=== PATIENT | female | born 1990 | race Caucasian/White ===

== ENCOUNTER 2025-04-25 22:26 | Observation (INO) | payer MEDICAID, SELFPAY ==
[2025-04-25] VITALS (13 sets, daily range): BP systolic 100–112; BP diastolic 60–73; PULSE 94–118; RESP 18–20; TEMP 36.4–36.7; O2SAT 96–98; BMI 27.6
--- NOTE | 2025-04-25 17:06 | XR_ITS ---
Examination: PA chest single view TECHNIQUE: Upright PA chest single view Date and time: April 25, 2025 1723 hours INDICATIONS: Cough and congestion shortness of breath today. FINDINGS: Mild left base pneumonia Normal heart size Osseous structures intact IMPRESSION: Mild left base pneumonia
--- NOTE | 2025-04-25 17:07 | XR_ITS ---
Examination: Complete OB ultrasound greater than 14 weeks Date and time of exam: April 25, 2025 1742 hours INDICATIONS: Vaginal pain with vaginal discharge beginning 4 days ago Findings: Viable intrauterine single fetus with single amniotic sac presentation cephalic spine anterior Cardiac motion 155 BPM Placenta posterior grade 2. Umbilical cord insertion seen. Amniotic fluid index 15.3 cm. Cervix 2.3 cm. Ovaries obscured by bowel gas.. Composite estimated gestational age based on BPD, head circumference, abdominal circumference, femur length is 32 weeks 1 day Estimated weight 1846 g. Survey of intracranial anatomy, spinal anatomy, abdominal anatomy, four-chamber heart performed with no abnormalities identified. Impression: Viable intrauterine gestation cephalic presentation.
--- NOTE | 2025-04-25 17:08 | EDRME_ITS ---
Rapid Medical Screening Exam RME Arrival date/time: 04/25/25 16:51 34-year-old female currently presents emergency department today stating that she has cough ongoing x 1 month patient was sent here by MANAGER RESOURCE for further evaluation patient also reports nausea vomiting abdominal pain Chief Complaint: Flu Like Symptoms Vital signs: Vital Signs Temperature 98.0 F 04/25/25 16:59 Pulse Rate 118 H 04/25/25 16:59 Respiratory Rate 20 04/25/25 16:59 Blood Pressure 112/60 04/25/25 16:59 Pulse Oximetry (%) 97 04/25/25 16:59 Oxygen Delivery Method Room Air 04/25/25 16:59
[2025-04-25 17:53] LABS: Basophils % (Auto) 0 % (0-2.5); Eosinophils # (Auto) 0.1 Thou/mm3 (0.0-0.5); Eosinophils % (Auto) 1 % (0-10); Hematocrit 33.2 % (36.0-46.0); Hemoglobin 11.1 g/dL (12.0-16.0); Immature Granulocytes % (Auto) 0 % (0-0); Immature Granulocytes Auto 0.03 Thou/mm3 (0.00-0.00); Lymphocytes # (Auto) 2.3 Thou/mm3 (1.0-4.8); Lymphocytes % (Auto) 30 % (10-50); Mean Corpuscular HGB Conc 33.4 g/dl (31.0-37.0); Mean Corpuscular Hemoglobin 28.6 pg (25.0-35.0); Mean Corpuscular Volume 86 fL (80-100); Monocytes # (Auto) 0.8 Thou/mm3 (0.0-0.8); Monocytes % (Auto) 10 % (0-12); Neutrophils # (Auto) 4.4 Thou/mm3 (1.8-7.7); Neutrophils % (Auto) 57 % (37-80); Nucleated Red Blood Cell % 0 /100 WBC (0); Platelet Count 293 Thou/mm3 (140-440); RDW Standard Deviation 39.8 fL (36.4-46.3); Red Blood Count 3.88 Miln/mm3 (4.00-5.20); White Blood Count 7.6 Thou/mm3 (3.6-11.0)
[2025-04-25 18:44] LABS: Alanine Aminotransferase < 7 U/L (10-49); Albumin, Serum 3.8 gm/dL (3.5-5.0); Albumin/Globulin Ratio 1.4 (1.2-2.2); Alkaline Phosphatase 89 U/L (46-116); Anion Gap 12 (7-16); Aspartate Amino Transferase 16 U/L (0-34); BUN/Creatinine Ratio 8 Ratio (12-20); Bilirubin,Total 0.3 mg/dL (0.3-1.2); Blood Urea Nitrogen < 5 mg/dL (9-23); Calcium 9.3 mg/dL (8.3-10.6); Calcium (Corrected) 9.5 mg/dL (8.5-10.1); Carbon Dioxide 24.1 mMol/L (20.0-31.0); Chloride 105 mMol/L (98-107); Creatinine (Component) 0.6 mg/dL (0.6-1.3); Globulin 2.7 gm/dL (2.3-3.5); Glucose 100 mg/dL (74-106); Lipase 90 U/L (12-53); Osmolality,Calculated 278 (275-295); Potassium 3.1 mMol/L (3.4-5.1); Sodium 141 mMol/L (136-145); Total Protein 6.5 gm/dL (5.7-8.2); eGFR > 60 See Note
[2025-04-25 18:47] LABS: Collection Type, Urine Clean Catch
[2025-04-25 18:59] LABS: Beta HCG,Quantitative 26318 mIU/mL (<5.0)
[2025-04-25] MEDS: POTASSIUM CHLORIDE 20 mEq TABCR 40 MEQ PO (19:17)
[2025-04-25] MEDS: OSELTAMIVIR 75 MG CAPSULE PO (19:17)
[2025-04-25 19:32] LABS: Bilirubin,Urine 1+ (Negative); Blood,Urine Trace (Negative); Calcium Oxalate Crystals,Urine 1+; Color,Urine Yellow (Lt Yel-Yel); Glucose, Urine Trace (Negative); Ketones,Urine 1+ (Negative); Leukocyte Esterase,Urine Positive (Negative); Nitrite,Urine Negative (Negative); Protein,Urine 2+ (Neg - Trace); RBC,Urine 140 /hpf (0-3); Specific Gravity,Urine 1.037 (1.001-1.035); Squamous Epithelial Cell,Urine 254 /hpf (0-5); WBC,Urine 456 /hpf (0-5)
[2025-04-25 20:20] LABS: Clarity,Urine Turbid (Clear/Hazy)
[2025-04-25 20:26] LABS: Amphetamine/Methamp Scrn,U Negative (Negative); Barbiturate Screen,Urine Negative (Negative); Benzodiazepines Screen,Urine Negative (Negative); Benzoylecgonine Screen, Ur Negative (Negative); Fentanyl Screen,Urine Negative (Negative); Opiate Screen,Urine Negative (Negative); THC Screen,Urine Negative (Negative)
--- NOTE | 2025-04-25 21:31 | EDNOTE_ITS ---
Upper Respiratory Inf. RME/HPI General Chief Complaint: Flu Like Symptoms Stated Complaint: NEEDS CHEST XRAY SENT BY OB, 32WKS PREG Time Seen by Provider: 04/25/25 18:14 Arrival date/time: 04/25/25 16:51 RME / HPI RME / HPI Narrative: 34-year-old female patient 2 para 1, about 32 weeks , was sent to us by GLOBAL HUMAN RESOURCES DIRECTOR for evaluation regarding cough. Patient been having cough for 2 weeks, associated with headaches, nausea, vomiting and clear vaginal discharge. Patient denies any abdominal pain or cramping. Denies any vaginal bleeding or spotting. Denies any fever. Denies any other complaints no medication was taken prior to arrival. Related Data Previous Rx's ?Medication ?Instructions ?Recorded HYDROCODONE BIT/ACETAMINOPHEN 1 tab PO Q4-6HRPRN PRN A BDOMINAL 10/05/13 (Vicodin 5/300) PAIN ##10 Motrin 600 MG 1 tab PO qidprn pain #1 tab 09/03/16 vicodin 5/300 1 tab PO q4hprn pain #10 tab s 09/03/16 ibuprofen 600 mg tablet 600 mg PO Q8H PRN fever or p ain 09/17/24 #30 tabs cefuroxime axetil 500 mg tablet 500 mg PO BID #14 tabs 04/25/25 oseltamivir 75 mg capsule (Tamiflu) 75 mg PO BID 5 day s #10 caps 04/25/25 Allergies Allergy/AdvReac Type Severity Reaction Status Date / Time NKA* Allergy Uncoded 04/25/25 16:55 Review of Systems Review of Systems Narrative Review of Systems: Review of system reviewed and within normal limits except mentioned in HPI ED Exam Narrative Physical exam: VITAL SIGNS: Reviewed. GENERAL APPEARANCE: Alert and interactive, follows commands, no acute distress, HEAD AND FACE: Non-traumatic. ENT: PERRL, pink conjunctivitis, eyelid no trauma, Mucous membrane moist. NECK: Supple, nontender, no nuchal rigidity. CHEST: No tenderness, no crepitus, no paradoxical movement, no retractions. LUNGS: Clear, well ventilated, symmetric, no rales, no wheezing, no ronchi, no stridor, good breath sounds bilaterally. HEART: Regular rate, regular rhythm, no murmur, no gallops. ABDOMEN: Soft, positive bowel sounds, nondistended, no guarding, nontender, no rebound, no masses, RECTAL: Deferred. GENITAL: Deferred. NEUROLOGICAL: Gross motor function intact sensory function intact, Appropriate for age. MUSCULOSKELETAL: low back nontender, full range of motion. EXTREMITIES: Nontender, full range of motion. SKIN: Color pink, dry, no rash, no lacerations, no abrasions, no contusions. LYMPHATICS: Deferred. Course Quality Measures none Orders Category Date Time Status Bedside Influenza A&B Antigen Test NOW Care 04/25/25 17:06 Completed US OB >= 14 weeks Fetus Stat Exams 04/25/25 17:07 Completed XR chest 1V portable Stat Exams 04/25/25 17:06 Completed ABO/RH Type Stat Lab 04/25/25 17:16 Completed Beta HCG,Quantitative Stat Lab 04/25/25 17:16 Completed CBC Stat Lab 04/25/25 17:16 Completed Cocci Serology IgM with reflex to IgG [Cocci Serology, Lab 04/25/25 17:16 Received Unk History] Stat Comprehensive Metabolic Panel Stat Lab 04/25/25 17:16 Completed Drug Screen,Urine Stat Lab 04/25/25 18:39 Completed Lipase Stat Lab 04/25/25 17:16 Completed UA [Urinalysis] Stat Lab 04/25/25 18:39 Completed Urine Culture Stat Lab 04/25/25 18:39 Received 1,000 mg IM w/Lido* 1% Med 04/25/25 21:30 Ordered cefTRIAXone [Rocephin] 1,000 mg Lidocaine 1% 20 ml [Xylocaine 1% 20 ML] 2.1 ml IM X1 Oseltamivir [Tamiflu] Med 04/25/25 18:56 Discontinued 75 mg PO X1 ONE Potassium Chloride [K-Dur] Med 04/25/25 18:56 Discontinued 40 meq PO X1 ONE Vital Signs Vital signs: Vital Signs Temperature 98.0 F 04/25/25 16:59 Pulse Rate 118 H 04/25/25 16:59 Respiratory Rate 20 04/25/25 16:59 Blood Pressure 112/60 04/25/25 16:59 Pulse Oximetry (%) 97 04/25/25 16:59 Oxygen Delivery Method Room Air 04/25/25 16:59 Upper Respiratory Infection MDM Narrative MDM Narrative:: 52-year-old male patient with significant history of hypertension diabetes mellitus, came in for evaluation regarding left ring finger wound check. Apparently patient sustained a laceration to the left ring finger, 19 days ago, seen in different emergency room, and currently followed by hand specialist. Patient supposed to have surgery 3 days ago however it was canceled due to card iac clearance problem. For the last several days patient has been noticing foul-smelling discharge. Denies any fever. Denies any other plane patient is not currently taking any antibiotic. Patient tested positive for influenza A and B, urinalysis positive for UTI, chest x-ray showed mild pneumonia. Results discussed with the patient. Patient was given potassium replacement, Tamiflu, and SCeftriaxone IM Was sent to labor and delivery for monitoring also. Patient data External records reviewed:: None Clinical information provided by:: patient Social determinants that could affect healthcare access:: none Patient has the following chronic illnesses:: None How is presenting disease/condition affected by chronic disease/condition?: no chronic disease Evaluation data The following diagnostics were reviewed and interpreted by me:: lab results and radiology exam(s) Lab and/or radiology exams considered but not ordered:: None Interpretation Summary: None Medications / Prescriptions Medications or Prescriptions considered but not ordered:: None Medication administrations:: Medication Administration History Ceftriaxone Sodium 1,000 mg/ (Lidocaine HCl 2.1 ml) 0 mg IM X1 ONE Stop: 04/25/25 21:31 Discontinued Medications Oseltamivir Phosphate (Oseltamivir 75 Mg Capsule) 75 mg PO X1 ONE Stop: 04/25/25 18:57 Last Admin: 04/25/25 19:17 Dose: 75 mg Documented By: BD Potassium Chloride (Potassium Chloride 20 Meq Tabcr) 40 meq PO X1 ONE Stop: 04/25/25 18:57 Last Admin: 04/25/25 19:17 Dose: 40 meq Documented By: BD Potassium replacement Tamiflu, ceftriaxone IM Consultations Consultation(s) initiated? (list below): No Diagnosis Upper Respiratory Differential Diagnosis: upper respiratory infection, viral infection and influenza Most likely diagnosis given after review of the tests above:: Influenza, pneumonia, UTI, third trimester Admission Indicated Admission indicated?: not indicated Admission Request Was there a request for admission?: No Disposition Plan Disposition Plan: Discharge Discharge Attestation Discharge Attestation: The patient was given an opportunity to ask questions and understood the discharge instructions. Discharge instructions specifically effects, indications for sooner follow up or return to the emergency department, and the expected course of current diagnosis. Patient condition: Stable Discharge Plan Plan Patient Disposition: HOME (Self Care) Discharge Disposition comment: Stable Prescriptions/Referrals Prescriptions/Med Rec: New oseltamivir [Tamiflu] 75 mg capsule 75 mg PO BID 5 Days Qty: 10 0RF cefuroxime axetil 500 mg tablet 500 mg PO BID Qty: 14 0RF No Action HYDROCODONE BIT/ACETAMINOPHEN (Vicodin 5/300) 1 TAB tablet 1 tab PO Q4-6HRPRN PRN (Reason: ABDOMINAL PAIN) Qty: 10 0RF Motrin 600 MG 1 tab PO qidprn pain Qty: 1 0RF vicodin 5/300 1 tab PO q4hprn pain Qty: 10 0RF ibuprofen 600 mg tablet 600 mg PO Q8H PRN (Reason: fever or pain) Qty: 30 0RF Referrals: No Primary/Family,Physician [Primary Care Provider] - In 1 week Problem List Clinical Impression: Influenza, UTI (urinary tract infection), Pneumonia affecting in third trimester Patient/Caregiver Discharge Instructions Discharge Activity: activity as tolerated Education Materials: ED Influenza (Adult) Additional Instructions: Thank you for the opportunity for serving you today. You are stable for discharged . You are advised to: Follow-up with your GLOBAL HUMAN RESOURCES DIRECTOR in 1 to 2 days Return to ED for worsening of symptoms Increase oral fluids Take medication as prescribed Print Language: Chinese Stand Alone Forms: Rae Award Info., Patient Portal Info Letter MICHELLE/JERAMY Supervising Physician MICHELLE/JREAMY Supervising Physician: MD Tami
[2025-04-25] MEDS: cefTRIAXone 1,000 MG, LIDOCAINE 1% 20 ML 2.1 ML IM (22:06)
--- NOTE | 2025-04-25 22:19 | PC.NURSE ---
PT TO OB.
[2025-04-26 14:39] LABS: Cocci Serology, IgM Negative (Negative)
[2025-04-28 14:12] LABS: Cocci Serology, IgG Negative (Negative)
== END 2025-04-25 23:30 | disposition home or self-care (01) ==
LOC: S4SX 22:27
PROVIDERS: Nurse Practitioner Primary Care; Admitting Provider Specialist; PCP Family Medicine; Visit Provider Specialist
DX: O23.43 Unspecified infection of urinary tract in pregnancy, third trimester (principal); N39.0 Urinary tract infection, site not specified; O99.513 Diseases of the respiratory system complicating pregnancy, third trimester; J11.00 Influenza due to unidentified influenza virus with unspecified type of pneumonia; Z3A.32 32 weeks gestation of pregnancy
CPT/HCPCS: 36415; 59025; 59899; 71045; 76805; 80053; 80307; 81001; 83690; 84702; 85025; 86331; 86635; 86900; 86901; 87086; 87400; 96372; 99283; J0696; J3490; A9270

== ENCOUNTER 2025-06-09 17:10 | Observation (INO) | payer MEDICAID, SELFPAY ==
[2025-06-09] VITALS (20 sets, daily range): BP systolic 96–109; BP diastolic 64–71; PULSE 71–90; RESP 18–98; TEMP 36.7; O2SAT 98–100; BMI 27.6
[2025-06-09 18:30] LABS: ROM Kit Exp Date# 11-15-27; ROM Kit Lot # 58102387; Swb Mxed in Solvent 1 min? Yes
[2025-06-09 18:31] LABS: ROM Swab Mixed By: ASTOA1; Rupture of Fetal Membranes Negative (Negative)
== END 2025-06-09 19:00 | disposition home or self-care (01) ==
PROVIDERS: Admitting Provider Obstetrics & Gynecology; Visit Provider Obstetrics & Gynecology
DX: O47.1 False labor at or after 37 completed weeks of gestation (principal); Z3A.39 39 weeks gestation of pregnancy
CPT/HCPCS: 59025; 59899; 84112

== ENCOUNTER 2025-06-17 17:26 | Inpatient (IN) | payer MEDICAID, SELFPAY ==
[2025-06-17 17:35] VITALS: BP 99/63; PULSE 91; BMI 27.4
[2025-06-17] MEDS: RINGERS LACTATED 1000 ML 1,000 ML 100 ML IV (18:03)
[2025-06-17 18:30] LABS: Basophils # (Auto) 0.0 Thou/mm3 (0.0-0.2); Basophils % (Auto) 0 % (0-2.5); Eosinophils # (Auto) 0.0 Thou/mm3 (0.0-0.5); Eosinophils % (Auto) 1 % (0-10); Hematocrit 31.2 % (36.0-46.0); Hemoglobin 10.2 g/dL (12.0-16.0); Immature Granulocytes Auto 0.03 Thou/mm3 (0.00-0.00); Lymphocytes # (Auto) 1.7 Thou/mm3 (1.0-4.8); Lymphocytes % (Auto) 27 % (10-50); Mean Corpuscular HGB Conc 32.7 g/dl (31.0-37.0); Mean Corpuscular Hemoglobin 25.6 pg (25.0-35.0); Mean Corpuscular Volume 78 fL (80-100); Monocytes # (Auto) 0.4 Thou/mm3 (0.0-0.8); Monocytes % (Auto) 7 % (0-12); Neutrophils # (Auto) 4.0 Thou/mm3 (1.8-7.7); Neutrophils % (Auto) 65 % (37-80); Nucleated Red Blood Cell # 0.00 Thou/mm3 (0.00-0.00); Nucleated Red Blood Cell % 0 /100 WBC (0); Platelet Count 314 Thou/mm3 (140-440); RDW Standard Deviation 40.5 fL (36.4-46.3); Red Blood Count 3.98 Miln/mm3 (4.00-5.20); White Blood Count 6.2 Thou/mm3 (3.6-11.0)
--- NOTE | 2025-06-17 18:49 | XR_ITS ---
Examination: Complete OB ultrasound greater than 14 weeks Date and time of exam: June 17, 2025, 1911 hours INDICATIONS: Prelabor induction, unknown presentation, unknown dates, clinical diagnosis postdates Findings: Viable intrauterine single fetus with single amniotic sac presentation cephalic Cardiac motion 153 BPM Placenta posterior grade 3 Umbilical cord insertion 3 vessel seen Amniotic fluid index 1.1 cm spine maternal right Cervix 3.6 cm Ovaries obscured by bowel gas. Composite estimated gestational age based on BPD, head circumference, abdominal circumference, femur length is 30 weeks 4 days Estimated weight 3484 g. Survey of intracranial anatomy, spinal anatomy, abdominal anatomy, four-chamber heart performed with no abnormalities identified. Impression: Viable intrauterine gestation cephalic presentation Estimated gestational age 38 weeks 4 days Estimated weight 3484 g.
[2025-06-17 18:55] VITALS: BP 122/81; PULSE 108
[2025-06-17 19:19] VITALS: TEMP 36.6
[2025-06-17 20:09] LABS: Syphilis Nonreactive (Nonreactive)
[2025-06-17 20:25] LABS: Amphetamine/Metham Scrn,Ur OB Negative (Negative); Benzoylecgonine Screen, Ur OB Negative (Negative); Opiate Screen,Urine OB Negative (Negative); THC Screen,Urine OB Negative (Negative)
--- NOTE | 2025-06-17 20:43 | PD.LDHP ---
Documentation for date of: 06/17/25 OB Labor/Induct. HPI History of Present Illness Chief complaint: scheduled IOL : 2 Para: 1 Term pregnancies: 1 pregnancies: 0 Living children: 1 History of Abortions: Spontaneous and Elective: 1 History of Vaginal deliveries: 1 History of sections: No History of : No Date of last menstrual period: 09/06/24 MIR: 06/13/25 Gestational Age (weeks): 40 Gestational Age (days): 4 Gestational age based on last menstrual period: 40 Indication for induction: post dates History of present illness: Patient presents for scheduled induction of labor. Indication: late-term gestation. No regular/painful ctx. No LOF. No vaginal bleeding. Normal movement. History of Present Dating criteria: LMP confirmed by 2nd trimester US Adequate Care: Yes Abnormal ultrasound findings: 30 week growth: 22%ile 36 week growth: 47%ile Narrative: : FAVD with laceration of vaginal artery and subsequent surgery - patient unsure of details beyond that. [id number]. G2: current FOB is 69yo w/hx of hydrocephalus NIPT negative, XX Patient vapes nicotine ( few puffs every couple hours ) Hx of macrosomia, 1hr glucola 81 Anemia Rubella non-immune Labs Maternal Blood Type: O Pos Labs: Negative: RPR, Hepatitis B, Rubella Titre, HIV, Chlamydia, Gonorrhea and Group Beta Strep and Unknown: Herpes Type 1, Herpes Type 2 and Covid-19 Narrative: NIPT negative, XX MSAFP negative 1hr glucola 81 Review of Systems Review of Systems Narrative Review of Systems: Review of Systems Systems Reviewed: All systems reviewed, normal except as documented Constitutional Constitutional: Denies body ache(s), Denies chills, Denies fever(s) and Denies headache(s) ENT Ears, Nose, Mouth, and Throat: Denies headache(s) and Denies vertigo Cardiovascular Cardiovascular: Denies chest pain, Denies palpitations, Denies dyspnea and Denies syncope Respiratory Respiratory: Denies cough, Denies dyspnea Gastrointestinal Gastrointestinal: Denies nausea and Denies vomiting Neurologic Neurologic: Denies convulsions, Denies headache(s), Denies other visual disturbances, Denies syncope and Denies vertigo Past Medical History Family History OTHER FAMILY HX: Many types of cancers in various relatives (see office records) Surgical History SURGICAL: Negative Section Social History SOCIAL: Vapes nicotine daily x many years. No ETOH or illicit drug use. Past Medical History Comments PMH COMMENT: Hx of nicotine use Hx of manic depression Meds Home Medications and Allergies Home Medications ?Medication ?Instructions ?Recorded ?Confirmed ?Type vitamins-iron fumarate 65 1 tab PO QDAY 06/09/25 06/09/25 History mg iron-folic acid 1 mg tablet (Mynatal Plus) Allergies Allergy/AdvReac Type Severity Reaction Status Date / Time NKA* Allergy Uncoded 04/25/25 16:55 OB Exam Physical Exam Vital signs: Temp Pulse BP 97.8 F 108 H 122/81 06/17/25 19:19 06/17/25 18:55 06/17/25 18:55 General: well developed, well nourished, no acute distress, conversant Cardiac: normal heart rate Lungs: breathing without distress Abdomen: soft, gravid, non-tender, no rebound or guarding Extremities: tracce edema BLE Detailed Labor and Delivery Exam Dilation (cm): 1 Effacement (%): 50 Cervix position: mid station: -2 Consistency: medium Presentation: Vertex Membranes: intact monitor accelerations: 15x15 monitor decelerations: None penitentiary variability: Moderate (11-25) Contraction frequency (min): no ctx pattern OB Results Labs 06/17/25 17:58 Labs: Short CBC 06/17/25 Range/Units 17:58 WBC 6.2 (3.6-11.0) Thou/mm3 Hgb 10.2 L (12.0-16.0) g/dL Hct 31.2 L (36.0-46.0) % Plt Count 314 (140-440) Thou/mm3 OB Assessment & Plan Assessment and Plan (1) Encounter for induction of labor: Status: Acute Assessment and plan: Telma is a 35yo with SIUP at 40&4wk presenting for scheduled IOL for late-term gestation with new finding of oligohydramnios, RANDY 1.1cm. EFW 3484g. SCE: /-2. Vitals wnl, benign exam. Cat I FHRT. care with Dr. Beavers's office PMhx/PNC significant for: G1: FAVD 13 years ago with laceration of vaginal artery and subsequent surgery , [id number]. Normal 1hr glucola. FOB is 69yo w/hx of hydrocephalus. NIPT negative, XX Patient vapes nicotine ( few puffs every couple hours ) Anemia Rubella non-immune Plan: -Admit to L&D -Establish IV, IVF bolus 1L LR now, routine labs -CEFM -Regular diet [id number], then clear liquid diet in labor -Senior Corporate [employer]ant/consent re: iol and -GBS status: negative -Will initiate IOL with: cytotec 25mcg PV Q4hr -Anticipate -Safe to proceed Kari Chaves MD (2) Oligohydramnios in third trimester: Status: Acute (3) 40 weeks gestation of : Status: Acute (4) History of macrosomia in in prior , currently in third trimester: Status: Acute (5) History of forceps delivery in prior , currently : Status: Acute (6) Tobacco use affecting , antepartum: Status: Acute (2) Oligohydramnios in third trimester Qualifiers: Fetus number: single or unspecified fetus Qualified Code(s): O41.03X0 - Oligohydramnios, third trimester, not applicable or unspecified
[2025-06-17 22:24] VITALS: BP 107/70; PULSE 68
[2025-06-18] VITALS (120 sets, daily range): BP systolic 93–137; BP diastolic 50–94; PULSE 50–101; RESP 15–19; TEMP 36.1–37; O2SAT 80–100
[2025-06-18] MEDS: fentaNYL CIT INJ 50 mCg/ML AMP 2ML 100 MCG IVP ×2 (05:20→06:20)
[2025-06-18] MEDS: RINGERS LACTATED 1000 ML 1,000 ML 100 ML IV ×2 (05:21→06:14)
[2025-06-18] MEDS: OXYTOCIN in NS 20 units 20 UNIT/1,000 ML BAG 125 UNIT IV ×2 (08:47→10:13)
[2025-06-18] MEDS: LIDOCAINE HCL 1% 20 ML VIAL INFL (08:50)
[2025-06-18] MEDS: BENZO/LANO/ALOE (Dermoplast) 60 GM CAN 1 SPRAY TOP (08:55)
[2025-06-18] MEDS: IBUPROFEN TAB 400 MG TABLET 800 MG PO ×2 (08:56→20:48)
[2025-06-18] MEDS: METHYLERGONOVINE INJ 0.2 MG/ML VIAL IM (09:15)
[2025-06-18] MEDS: CARBOPROST TROMETH INJ 250 MCG/ML VIAL IM (09:20)
[2025-06-18] MEDS: TRANEXAMIC ACID 1,000 MG IVPB 1,000 MG/100 ML BAG 200 MG IV (09:30)
[2025-06-18] MEDS: DIPHENOXYLATE/ATROP SULF 1 TAB PO (09:35)
[2025-06-18] MEDS: ACETAMINOPHEN 325 MG TABLET 650 MG PO (15:48)
[2025-06-18] MEDS: AMPICILLIN/SULBAC INJ 3 GM in SODIUM CHLORIDE 0.9% (POP) 100 ML IV (15:49)
[2025-06-18 15:57] LABS: Basophils # (Auto) 0.0 Thou/mm3 (0.0-0.2); Basophils % (Auto) 0 % (0-2.5); Eosinophils # (Auto) 0.0 Thou/mm3 (0.0-0.5); Eosinophils % (Auto) 0 % (0-10); Hematocrit 27.7 % (36.0-46.0); Hemoglobin 8.9 g/dL (12.0-16.0); Immature Granulocytes Auto 0.05 Thou/mm3 (0.00-0.00); Lymphocytes # (Auto) 1.2 Thou/mm3 (1.0-4.8); Lymphocytes % (Auto) 10 % (10-50); Mean Corpuscular HGB Conc 32.1 g/dl (31.0-37.0); Mean Corpuscular Hemoglobin 26.3 pg (25.0-35.0); Mean Corpuscular Volume 82 fL (80-100); Monocytes # (Auto) 0.9 Thou/mm3 (0.0-0.8); Monocytes % (Auto) 7 % (0-12); Neutrophils # (Auto) 9.4 Thou/mm3 (1.8-7.7); Neutrophils % (Auto) 82 % (37-80); Nucleated Red Blood Cell # 0.00 Thou/mm3 (0.00-0.00); Nucleated Red Blood Cell % 0 /100 WBC (0); Platelet Count 244 Thou/mm3 (140-440); RDW Standard Deviation 42.1 fL (36.4-46.3); Red Blood Count 3.39 Miln/mm3 (4.00-5.20); White Blood Count 11.6 Thou/mm3 (3.6-11.0)
--- NOTE | 2025-06-18 16:02 | OBDSUM_ITS ---
Data ([facility]) Data Hx Section: No : 2 Term: 1 : 0 Livin Abortions: Spontaneous & Theraputic: 1 Delivery Data ([facility]) Labor Data Initiation of labor: Spontaneous Induction/Augmentation Agent: Cytotec-Vaginal ROM date: 06/18/25 ROM time: 08:36 Amniotic membrane rupture type: Artificial Delivery Data Onset of labor date: 06/18/25 Onset of labor time: 07:42 Complete dilation date: 06/18/25 Complete dilation time: 08:40 [place] delivery date: 06/18/25 delivery time: 08:44 Placenta delivery date: 06/18/25 Placenta delivery time: 08:51 Stage 1 total time: Labor - Stage 1 Duration 58 minutes Delivered by: Anastacio Delivery nurse: Shelby Neworn nurse: Brittany Site Manager at delivery: No Support person(s) at delivery: FOB Other staff at delivery: DANIELA Denton Delivery Method Delivery method: Normal Vaginal Delivery Presentation: Vertex Anesthesia Type Anesthesia Type: Local and Epidural Placenta Placenta delivery description: Spontaneous Cord blood sent to lab: Yes cord blood collection: Cord Blood Type EBL Estimated blood loss (ml): 500 Umbilical Cord cord description: 3 Vessels Additional Procedures Telma is a 35yo [id number] with s/p uncomplicated at 40&5wk after undergoing IOL for late-term gestation with new finding of oligohydramnios, RANDY 1.1cm, on a dmission- she delivered at 0844 on 06/18/25. On presentation, SCE was 1/50/-2. She progressed to delivery with PV cytotec alone. She had rapid cervical change from 5 to 10cm, and received an epidural just prior to 10cm. At C/C/0 she began pushing. With just a couple sets of contractions, infant's head delivered OA and restituted CHERYL. Left anterior shoulder delivered easily followed by posterior s houlder and corpus. Meconium fluid noted at that point. Infant had spontaneous cry and was vigorous. Apgars 8/9. placed on maternal abdomen where nose/mouth were suctioned and dried/stimulated. After approximately 1 minute, cord was clamped x2 and cut by FOB. Cord blood collected for typing. With fundal massage and cord traction, placenta delivered spontaneously and intact with 3 vessel centrally inserted cord. Bimanual massage performed and IV pitocin given per protocol with fundus then firm at u-2cm and hemostasis noted. Inspection of perineum and vagina revealed right labial laceration which was repaired in routine fashion with 4-0 vicryl after anesthetizing with 1% lidocaine- total reapproximation and hemostasis achieved. Trickle of blood noted on fundal massage, so sweep just within cervix/RICHARD performed which revealed a large collection of clot within the uterus. Manual sweep was performed to remove the clot, there was no retained POCs. The lower uterine segment was noted to be very boggy, so vigorous bimanual massage was performed. During massage, 0.2mg IM methergine was given. Upon re-check a few minutes later, there was a substantial amount of re-collection of clot within the uterus and lower uterine segment was boggy again. At that time the clot was removed, vigorous bimanual massage again performed with resultant firming of lower uterine segment. She was given 0.25mg hemabate IM and another IV was placed to begin infusion of TXA 1g IV. After all of these measures, the uterine fundus and lower uterine segment remained firm with only very small amount of clot collected on final sweep. Cytotec 800mcg CT placed for continued prophylaxis against atony. Unasyn 3g IV x1 ordered for prophylaxis given extensive uterine sweeping of clot. All counts correct x2. Mom and infant were doing well when I left the room. Kari Chaves MD Complications Complications: PPH [place] Data ([facility]) [place] Data order: 1 [place]'s gender: Female Identification band number: [id number] weight (gms): 3430 g Weight (pounds): 7 lbs and 9.0 ozs 1 minute: 8 5 minutes: 9
[2025-06-18] MEDS: DOCUSATE SOD 100 MG CAPSULE PO (20:48)
[2025-06-19 00:15] VITALS: BP 115/76; PULSE 70; RESP 18; TEMP 36.6; O2SAT 99
[2025-06-19 04:18] VITALS: BP 100/63; PULSE 65; RESP 16; TEMP 36.4; O2SAT 100
[2025-06-19 08:05] VITALS: BP 110/70; PULSE 68; RESP 16; TEMP 36.6; O2SAT 100
--- NOTE | 2025-06-19 09:00 | PC.NURSE ---
Lab came to draw CBC, pt refused stating her doctor said she was fine and will be going home today. I explained that her Hgb had dropped yesterday and asked if she was having any symptoms (lightheaded, fatigued) pt denied all. Vitals are WNL, will speak to doctor when she comes in, as pt is in fact expected to go home today.
--- NOTE | 2025-06-19 09:47 | PC.LAC ---
Mom states she is doing well with , does not have any questions at this time. States she will be following up with [facility].
[2025-06-19 11:35] VITALS: BP 114/72; PULSE 72; RESP 16; TEMP 36.7; O2SAT 100
--- NOTE | 2025-06-19 13:02 | PD.LDDS ---
DS: Providers Provider Date of admission: 06/17/25 17:26 Primary care physician: Kasey Paulino PA-C Admitting Provider: Kari Chaves MD Attending Provider on Admission: Kari Chaves MD Consults: 06/18/25 09:40 Referral Routine Comment: Attending Provider on DC: Ana Rae MD ([facility]) Discharging Provider: Ana Rae MD ([facility]) Anticipated date of discharge: 06/19/25 DS: Diagnosis Discharge Diagnosis (1) Term delivered: Status: Acute Assessment & Plan: Discharge home day #1 in stable condition Problem List Completed Was Problem List Reviewed/Reconciled?: Yes Summary/Hosp Course Brief History: The patient is a 35-year-old -0-0-1 at term with all care uncomplicated with Dr Beavers presented for scheduled induction of labor. Indication: late-term gestation. Dr. Chaves admitted the patient 06/17/2025. See history and physical for further details. No regular/painful ctx. No LOF. No vaginal bleeding. Normal movement. The patient underwent an uncomplicated vaginal delivery by Dr. Chaves 06/18/2025. Please see delivery notes for further details. On day #1 patient was dressed in her own clothes and ambulating around the room. Her baby was present as is the father of the baby. Patient denied heavy bleeding or cramping. She denies nausea or vomiting. Her predelivery hemoglobin was 10.2. Her post delivery at [address] Chaves had ordered a CBC for this morning but patient declined. She states she will follow-up with Dr Beavers. She specifically reports no dizziness no shortness of breath. Her vital signs are stable. Patient would like to be discharged. At delivery she was given TXA and Cytotec. She was given 1 dose of antibiotics secondary to manual removal of clots at delivery. She will be discharged home day #1. Peripartum Data Delivery Method: Normal Vaginal Delivery complications: none Status at Discharge Cognitive/behavioral status at discharge: Patient is alert and oriented x 3 in no apparent distress Functional status at discharge: independent ambulation Overall status at discharge: patient is progressing back to baseline Time Spent with Patient Time attestation: Total time spent providing and/or coordinating discharge services: Time spent: Less than 30 minutes Specific discharge activities: Pelvic rest x 6 weeks Exam Vital Signs Temp Pulse Resp BP Pulse Ox O2 Del Method 97.8 F 68 16 110/70 100 Room Air 06/19/25 08:05 06/19/25 08:05 06/19/25 08:05 06/19/25 08:05 06/19/25 08:05 06/19/25 08:05 Narrative Exam Fundus firm nontender extremities show no significant edema or erythema Discharge Plan Plan Patient Disposition: HOME (Self Care) Disposition Comment: Stable Patient condition on transfer: Stable Prescriptions/Referrals Prescriptions/Med Rec: New docusate sodium 100 mg Capsule 100 mg PO BID 10 Days Qty: 20 0RF ibuprofen 800 mg tablet 800 mg PO Q8H PRN (Reason: See Comments) 10 Days Qty: 20 0RF Continued Mynatal Plus 65 mg iron- 1 mg tablet 1 tab PO QDAY Referrals: Kasey Paulino PA-C [Primary Care Provider] - Patient/Caregiver Discharge Instructions Discharge Activity: activity as tolerated and other Other Discharge Activity Instructions:: vaginal rest and no heavy lifting more than 10 pounds for 6 weeks Other Discharge Diet Instructions: regular diet Education Materials: After a Vaginal Print Language: Upper Sorbian Activity Restrictions/Additional Instructions: Follow up with your OBGYN in 2 to 4 weeks for visit. Call for appointment. Stand Alone Forms: Rae Award Info., Patient Portal Info Letter Discharge Order Discharge Orders: Discharge (Routine); Ordered 06/19/25 Ordered By: Ana Rae ([facility]) Planned Discharge Date 06/19/25
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
== END 2025-06-19 14:07 | disposition home or self-care (01) | DRG 560 ==
LOC: S4SX 06-18 10:46 → S4NX 06-18 14:20
PROVIDERS: Admitting Provider Obstetrics & Gynecology; PCP Physician Assistant; Visit Provider Obstetrics & Gynecology
DX: O41.03X0 Oligohydramnios, third trimester, not applicable or unspecified (principal); O48.0 Post-term pregnancy; Z37.0 Single live birth; Z3A.40 40 weeks gestation of pregnancy; O70.0 First degree perineal laceration during delivery; O77.0 Labor and delivery complicated by meconium in amniotic fluid; F17.290 Nicotine dependence, other tobacco product, uncomplicated; O99.334 Smoking (tobacco) complicating childbirth; O99.02 Anemia complicating childbirth
CPT/HCPCS: 36415; 59409; 76805; 80307; 85025; 86780; 86850; 86900; 86901; 86923; 94762; J0295; J2210; J2590; J2795; J3010; J3490; J7120; S0191; A9270